=== PATIENT | female | born 1935 | race Caucasian/White ===

== ENCOUNTER 2023-07-05 15:16 | Inpatient (IN) | payer OTHER ==
[2023-07-05 17:54] LABS: POTASSIUM 3.7 mmol/L (3.5-5.1)
[2023-07-05 17:56] LABS: ALBUMIN 3.4 g/dl (3.4-5.0); BLOOD UREA NITROGEN 13.5 mg/dL (7-18); CALCIUM 9.1 mg/dL (8.5-10.1); MAGNESIUM 1.8 mg/dL (1.8-2.4)
[2023-07-05 18:01] LABS: BILIRUBIN,TOTAL 0.9 mg/dL (0.2-1); TOT PROT 7.1 g/dl (6.4-8.2)
[2023-07-05 20:09] LABS: BASO % 0.7 % (0-2.0); EOS % 0.8 % (0-4.5); HEMATOCRIT 38.8 % (32.4-45.2); HEMOGLOBIN 13.1 GM/dL (10.7-15.3); LYMPH % 38.4 % (8-40); MCH 29.5 pg (25.7-33.7); MCHC 33.6 g/dl (32.0-36.0); MEAN CELL VOLUME 87.8 fl (80-96); MEAN PLT VOLUME 7.7 fl (7.5-11.1); MONO % 9.7 % (3.8-10.2); NEUT % 50.4 % (42.8-82.8); PLATELET COUNT 205 10^3/uL (134-434); RBC 4.42 M/mm3 (3.60-5.2); RDW 15.5 % (11.6-15.6); WHITE BLOOD COUNT 7.8 K/mm3 (4.0-10.0)
[2023-07-05 20:22] LABS: PH,URINE 6.5 (5.0-8.0); URINE APPEARANCE Clear; URINE BILIRUBIN Negative (NEGATIVE); URINE COLOR Yellow; URINE GLUCOSE (UA) Negative (NEGATIVE); URINE KETONE 1+ (NEGATIVE); URINE LEUK ESTERASE Negative (NEGATIVE); URINE NITRITE Negative (NEGATIVE); URINE PROTEIN 1+ (NEGATIVE); URINE UROBILINOGEN 0.2 mg/dL (0.2-1.0)
[2023-07-05 22:29] LABS: EPI CELLS 11.3 /uL (0-25.1); HYALINE CASTS 1.03 /uL (0-3.1); URINE BACTERIA 11.6 /uL (0-1359); URINE RBC 19.6 /uL (0-23.9); URINE WBC 17.4 /uL (0-25.8)
[2023-07-05 22:30] LABS: URINE CRYSTALS FEW /hpf
[2023-07-06] MEDS ORDERED: hydrALAZINE HCL 20 MG/ML VIAL IVPUSH PRN (00:19)
[2023-07-06] MEDS ORDERED: LOSARTAN POTASSIUM 50 MG TABLET PO ONE (00:40)
[2023-07-06] MEDS ORDERED: LABETALOL HCL 100 MG TABLET (FP) PO ONE (00:40)
[2023-07-06] MEDS ORDERED: LOSARTAN POTASSIUM 50 MG TABLET ONE ×2 (01:09→10:52)
[2023-07-06] MEDS ORDERED: LABETALOL HCL 100 MG TABLET (FP) ONE ×2 (01:09→10:51)
[2023-07-06] MEDS: hydrALAZINE HCL 20 MG/ML VIAL IVPUSH PRN ×3 (04:15→18:56)
[2023-07-06] MEDS ORDERED: hydrALAZINE HCL 20 MG/ML VIAL ONE ×3 (06:08→18:56)
[2023-07-06 06:24] LABS: HEMATOCRIT 35.8 % (32.4-45.2); HEMOGLOBIN 12.2 GM/dL (10.7-15.3); MCH 30.1 pg (25.7-33.7); MCHC 33.9 g/dl (32.0-36.0); MEAN CELL VOLUME 88.8 fl (80-96); MEAN PLT VOLUME 8.2 fl (7.5-11.1); PLATELET COUNT 197 10^3/uL (134-434); RBC 4.03 M/mm3 (3.60-5.2); RDW 15.2 % (11.6-15.6); WHITE BLOOD COUNT 7.1 K/mm3 (4.0-10.0)
[2023-07-06 06:39] LABS: POTASSIUM 3.4 mmol/L (3.5-5.1)
[2023-07-06 06:41] LABS: CALCIUM 9.2 mg/dL (8.5-10.1)
[2023-07-06 06:42] LABS: ALBUMIN 3.3 g/dl (3.4-5.0); BLOOD UREA NITROGEN 14.1 mg/dL (7-18); MAGNESIUM 1.8 mg/dL (1.8-2.4)
[2023-07-06 06:45] LABS: CREATININE 1.1 mg/dL (0.55-1.3); PHOSPHOROUS 4.8 mg/dL (2.5-4.9)
[2023-07-06 06:46] LABS: TOT PROT 6.8 g/dl (6.4-8.2)
[2023-07-06] MEDS ORDERED: CARBIDOPA/LEVODOPA 25/100 TABLET (FP) PO SCH (10:00)
[2023-07-06] MEDS ORDERED: FAMOTIDINE 20 MG TABLET ONE (10:51)
[2023-07-06] MEDS ORDERED: ASPIRIN 81 MG CHEWABLE TABLETS ONE (10:52)
[2023-07-06] MEDS ORDERED: ENOXAPARIN NA (PORCINE) 40 MG/0.4 ML DISP.SYRIN SQ ONE (10:52)
[2023-07-06] MEDS: ENOXAPARIN NA (PORCINE) 40 MG/0.4 ML DISP.SYRIN SQ SCH (10:55)
[2023-07-06] MEDS: FAMOTIDINE 20 MG TABLET PO SCH ×2 (10:55→11:13)
[2023-07-06] MEDS: LABETALOL HCL 100 MG TABLET (FP) PO SCH ×2 (10:55→11:12)
[2023-07-06] MEDS: LOSARTAN POTASSIUM 50 MG TABLET PO SCH ×2 (10:55→11:13)
[2023-07-06] MEDS: ASPIRIN COATED 81 MG TABLET.EC PO SCH (11:13)
[2023-07-06] MEDS ORDERED: LACTATED RINGERS SOLUTION 1,000 ML with POTASSIUM CHLORIDE 20 MEQ IV ONE (11:15)
[2023-07-06] MEDS ORDERED: LABETALOL HCL 20 MG/4 ML VIAL IVPUSH ONE (12:11)
[2023-07-06] MEDS ORDERED: KCL 10 MEQ IVPB 10 MEQ/100 ML INFUS.BAG IVPB SCH (12:15)
[2023-07-06] MEDS: CARBIDOPA/LEVODOPA 25/100 TABLET (FP) PO SCH ×2 (15:19→22:27)
[2023-07-06] MEDS ORDERED: KCL 10 MEQ IVPB 10 MEQ/100 ML INFUS.BAG IVPB ONE (16:11)
[2023-07-06] MEDS ORDERED: ATORVASTATIN CA 80 MG TABLET (FP) PO SCH (22:00)
[2023-07-07] MEDS: CARBIDOPA/LEVODOPA 25/100 TABLET (FP) PO SCH ×3 (06:29→21:38)
[2023-07-07] MEDS: ENOXAPARIN NA (PORCINE) 40 MG/0.4 ML DISP.SYRIN SQ SCH (09:08)
[2023-07-07] MEDS: FAMOTIDINE 20 MG TABLET PO SCH (09:09)
[2023-07-07] MEDS: ASPIRIN COATED 81 MG TABLET.EC PO SCH (09:09)
[2023-07-07 10:26] LABS: BASO % 0.2 % (0-2.0); EOS % 0.5 % (0-4.5); HEMOGLOBIN 13.1 GM/dL (10.7-15.3); LYMPH % 34.5 % (8-40); MCH 29.9 pg (25.7-33.7); MCHC 33.4 g/dl (32.0-36.0); MEAN CELL VOLUME 89.4 fl (80-96); MEAN PLT VOLUME 8.6 fl (7.5-11.1); MONO % 10.2 % (3.8-10.2); NEUT % 54.6 % (42.8-82.8); PLATELET COUNT 195 10^3/uL (134-434); RBC 4.36 M/mm3 (3.60-5.2); RDW 15.5 % (11.6-15.6)
[2023-07-07 10:47] LABS: ALBUMIN 3.5 g/dl (3.4-5.0); CALCIUM 9.7 mg/dL (8.5-10.1)
[2023-07-07 10:48] LABS: BLOOD UREA NITROGEN 18.2 mg/dL (7-18); MAGNESIUM 1.9 mg/dL (1.8-2.4)
[2023-07-07 10:50] LABS: PHOSPHOROUS 4.3 mg/dL (2.5-4.9)
[2023-07-07 10:51] LABS: TOT PROT 7.3 g/dl (6.4-8.2)
[2023-07-07] MEDS ORDERED: SODIUM CHLORIDE 1,000 ML IV SCH (18:15)
[2023-07-08] MEDS: CARBIDOPA/LEVODOPA 25/100 TABLET (FP) PO SCH ×3 (06:08→21:43)
[2023-07-08 08:34] LABS: BASO % 0.5 % (0-2.0); EOS % 0.8 % (0-4.5); HEMATOCRIT 34.5 % (32.4-45.2); HEMOGLOBIN 11.8 GM/dL (10.7-15.3); LYMPH % 25.6 % (8-40); MCH 30.5 pg (25.7-33.7); MCHC 34.1 g/dl (32.0-36.0); MEAN CELL VOLUME 89.5 fl (80-96); MONO % 8.1 % (3.8-10.2); PLATELET COUNT 176 10^3/uL (134-434); RBC 3.86 M/mm3 (3.60-5.2); RDW 15.1 % (11.6-15.6); WHITE BLOOD COUNT 8.5 K/mm3 (4.0-10.0)
[2023-07-08 08:53] LABS: CHLORIDE 109 mmol/L (98-107); POTASSIUM 3.7 mmol/L (3.5-5.1); SODIUM 143 mmol/L (136-145)
[2023-07-08 09:04] LABS: ALBUMIN 3.1 g/dl (3.4-5.0); ANION GAP 10 mmol/L (4-13); CO2 24 mmol/L (21-32); GLUCOSE,RANDOM 93 mg/dL (74-106); MAGNESIUM 1.8 mg/dL (1.8-2.4)
[2023-07-08 09:06] LABS: CREATININE 0.9 mg/dL (0.55-1.3); PHOSPHOROUS 3.8 mg/dL (2.5-4.9); SGOT/AST 17 U/L (15-37)
[2023-07-08 09:07] LABS: SGPT/ALT < 6 U/L (13-61)
[2023-07-08 09:08] LABS: BILIRUBIN,TOTAL 1.6 mg/dL (0.2-1); TOT PROT 6.6 g/dl (6.4-8.2)
[2023-07-08 09:09] LABS: ALK PHOS 48 U/L (45-117)
[2023-07-08] MEDS: FAMOTIDINE 20 MG TABLET PO SCH (10:07)
[2023-07-08] MEDS: ENOXAPARIN NA (PORCINE) 40 MG/0.4 ML DISP.SYRIN SQ SCH (10:07)
[2023-07-08] MEDS: ASPIRIN COATED 81 MG TABLET.EC PO SCH (10:07)
[2023-07-09] MEDS: LABETALOL HCL 100 MG TABLET (FP) PO SCH ×4 (01:29→22:30)
[2023-07-09] MEDS: LOSARTAN POTASSIUM 50 MG TABLET PO SCH ×2 (01:29→10:03)
[2023-07-09 05:28] VITALS: RESP 18
[2023-07-09] MEDS: CARBIDOPA/LEVODOPA 25/100 TABLET (FP) PO SCH ×4 (06:57→22:30)
[2023-07-09 09:30] LABS: HEMOGLOBIN 12.3 GM/dL (10.7-15.3); MCH 30.3 pg (25.7-33.7); MEAN CELL VOLUME 88.9 fl (80-96); MEAN PLT VOLUME 8.4 fl (7.5-11.1); PLATELET COUNT 175 10^3/uL (134-434); RBC 4.05 M/mm3 (3.60-5.2); RDW 15.4 % (11.6-15.6); WHITE BLOOD COUNT 7.3 K/mm3 (4.0-10.0)
[2023-07-09 09:48] LABS: CHLORIDE 108 mmol/L (98-107); POTASSIUM 3.7 mmol/L (3.5-5.1); SODIUM 143 mmol/L (136-145)
[2023-07-09] MEDS: FAMOTIDINE 20 MG TABLET PO SCH (09:59)
[2023-07-09] MEDS: ASPIRIN COATED 81 MG TABLET.EC PO SCH (09:59)
[2023-07-09 10:00] LABS: ALBUMIN 3.3 g/dl (3.4-5.0); ANION GAP 9 mmol/L (4-13); BLOOD UREA NITROGEN 15.5 mg/dL (7-18); CALCIUM 9.1 mg/dL (8.5-10.1); CO2 26 mmol/L (21-32); GLUCOSE,RANDOM 92 mg/dL (74-106)
[2023-07-09 10:03] LABS: CREATININE 0.8 mg/dL (0.55-1.3); SGOT/AST 19 U/L (15-37); SGPT/ALT < 6 U/L (13-61)
[2023-07-09] MEDS: ENOXAPARIN NA (PORCINE) 40 MG/0.4 ML DISP.SYRIN SQ SCH (10:03)
[2023-07-09 10:04] LABS: BILIRUBIN,TOTAL 1.8 mg/dL (0.2-1); TOT PROT 6.9 g/dl (6.4-8.2)
[2023-07-09 10:05] LABS: ALK PHOS 50 U/L (45-117)
[2023-07-09 19:42] VITALS: BMI 18.8
[2023-07-09] MEDS: ATORVASTATIN CA 80 MG TABLET (FP) PO SCH ×3 (22:00→22:32)
[2023-07-10] MEDS: CARBIDOPA/LEVODOPA 25/100 TABLET (FP) PO SCH ×3 (05:49→22:51)
[2023-07-10] MEDS: hydrALAZINE HCL 20 MG/ML VIAL IVPUSH PRN (10:56)
[2023-07-10] MEDS: ENOXAPARIN NA (PORCINE) 40 MG/0.4 ML DISP.SYRIN SQ SCH (11:09)
[2023-07-10] MEDS: LOSARTAN POTASSIUM 50 MG TABLET PO SCH (11:25)
[2023-07-10] MEDS: ASPIRIN COATED 81 MG TABLET.EC PO SCH (11:26)
[2023-07-10] MEDS: LABETALOL HCL 100 MG TABLET (FP) PO SCH ×2 (11:26→22:51)
[2023-07-10] MEDS: FAMOTIDINE 20 MG TABLET PO SCH (11:26)
[2023-07-10] MEDS ORDERED: DEXTROSE 5%-0.45% SALINE 1,000 ML IV SCH (14:15)
[2023-07-10] MEDS: ATORVASTATIN CA 80 MG TABLET (FP) PO SCH (22:50)
[2023-07-11] MEDS: CARBIDOPA/LEVODOPA 25/100 TABLET (FP) PO SCH ×3 (07:04→21:54)
[2023-07-11 08:30] LABS: HEMATOCRIT 35.4 % (32.4-45.2); HEMOGLOBIN 11.9 GM/dL (10.7-15.3); MCH 30.5 pg (25.7-33.7); MCHC 33.7 g/dl (32.0-36.0); MEAN CELL VOLUME 90.3 fl (80-96); PLATELET COUNT 159 10^3/uL (134-434); RBC 3.92 M/mm3 (3.60-5.2); RDW 15.3 % (11.6-15.6); WHITE BLOOD COUNT 6.7 K/mm3 (4.0-10.0)
[2023-07-11 08:48] LABS: POTASSIUM 3.3 mmol/L (3.5-5.1)
[2023-07-11 08:51] LABS: ALBUMIN 3.2 g/dl (3.4-5.0); BLOOD UREA NITROGEN 20.5 mg/dL (7-18)
[2023-07-11 08:54] LABS: CREATININE 1.1 mg/dL (0.55-1.3)
[2023-07-11 08:55] LABS: BILIRUBIN,TOTAL 0.8 mg/dL (0.2-1); TOT PROT 6.9 g/dl (6.4-8.2)
[2023-07-11] MEDS: hydrALAZINE HCL 20 MG/ML VIAL IVPUSH PRN ×2 (09:36→15:45)
[2023-07-11] MEDS: ENOXAPARIN NA (PORCINE) 40 MG/0.4 ML DISP.SYRIN SQ SCH (09:36)
[2023-07-11] MEDS: LOSARTAN POTASSIUM 50 MG TABLET PO SCH (11:24)
[2023-07-11] MEDS: ASPIRIN COATED 81 MG TABLET.EC PO SCH (13:11)
[2023-07-11] MEDS: LABETALOL HCL 100 MG TABLET (FP) PO SCH ×2 (15:45→21:54)
[2023-07-11] MEDS: FAMOTIDINE 20 MG TABLET PO SCH (20:05)
[2023-07-11] MEDS: ATORVASTATIN CA 80 MG TABLET (FP) PO SCH (21:53)
[2023-07-12] MEDS: CARBIDOPA/LEVODOPA 25/100 TABLET (FP) PO SCH ×3 (07:04→22:22)
[2023-07-12 09:26] LABS: HEMATOCRIT 35.9 % (32.4-45.2); HEMOGLOBIN 12.1 GM/dL (10.7-15.3); MCH 30.2 pg (25.7-33.7); MCHC 33.7 g/dl (32.0-36.0); MEAN CELL VOLUME 89.5 fl (80-96); PLATELET COUNT 169 10^3/uL (134-434); RBC 4.01 M/mm3 (3.60-5.2); RDW 15.3 % (11.6-15.6); WHITE BLOOD COUNT 6.2 K/mm3 (4.0-10.0)
[2023-07-12 09:40] LABS: POTASSIUM 3.4 mmol/L (3.5-5.1)
[2023-07-12 09:48] LABS: CALCIUM 8.9 mg/dL (8.5-10.1)
[2023-07-12 09:49] LABS: ALBUMIN 3.3 g/dl (3.4-5.0); BLOOD UREA NITROGEN 24.4 mg/dL (7-18); MAGNESIUM 1.9 mg/dL (1.8-2.4)
[2023-07-12 09:52] LABS: CREATININE 1.1 mg/dL (0.55-1.3); PHOSPHOROUS 3.7 mg/dL (2.5-4.9)
[2023-07-12 09:54] LABS: BILIRUBIN,TOTAL 1.2 mg/dL (0.2-1)
[2023-07-12] MEDS: ENOXAPARIN NA (PORCINE) 40 MG/0.4 ML DISP.SYRIN SQ SCH (10:36)
[2023-07-12] MEDS: hydrALAZINE HCL 20 MG/ML VIAL IVPUSH PRN (10:53)
[2023-07-12] MEDS: LOSARTAN POTASSIUM 50 MG TABLET PO SCH (11:15)
[2023-07-12] MEDS: LABETALOL HCL 100 MG TABLET (FP) PO SCH ×2 (11:15→22:22)
[2023-07-12] MEDS: FAMOTIDINE 20 MG TABLET PO SCH (11:15)
[2023-07-12] MEDS: ASPIRIN COATED 81 MG TABLET.EC PO SCH (11:15)
[2023-07-12] MEDS ORDERED: POTASSIUM CHLORIDE ORAL LIQUID 20 MEQ/15 ML PO ONE (14:23)
[2023-07-12] MEDS: KCL 10 MEQ IVPB 10 MEQ/100 ML INFUS.BAG IVPB SCH ×2 (15:47→17:01)
[2023-07-12] MEDS: ATORVASTATIN CA 80 MG TABLET (FP) PO SCH (22:22)
[2023-07-13] MEDS: CARBIDOPA/LEVODOPA 25/100 TABLET (FP) PO SCH ×4 (06:40→22:59)
[2023-07-13 09:25] LABS: ALBUMIN 3.4 g/dl (3.4-5.0); CALCIUM 9.2 mg/dL (8.5-10.1)
[2023-07-13 09:26] LABS: BLOOD UREA NITROGEN 34.4 mg/dL (7-18)
[2023-07-13 09:30] LABS: BILIRUBIN,TOTAL 0.8 mg/dL (0.2-1)
[2023-07-13 09:31] LABS: CREATININE 1.2 mg/dL (0.55-1.3)
[2023-07-13 09:33] LABS: TOT PROT 7.1 g/dl (6.4-8.2)
[2023-07-13] MEDS: LOSARTAN POTASSIUM 50 MG TABLET PO SCH (10:09)
[2023-07-13] MEDS: ASPIRIN COATED 81 MG TABLET.EC PO SCH (10:09)
[2023-07-13] MEDS: ENOXAPARIN NA (PORCINE) 40 MG/0.4 ML DISP.SYRIN SQ SCH (10:09)
[2023-07-13] MEDS: LABETALOL HCL 100 MG TABLET (FP) PO SCH ×3 (10:09→23:00)
[2023-07-13] MEDS: FAMOTIDINE 20 MG TABLET PO SCH (10:09)
[2023-07-13] MEDS: ATORVASTATIN CA 80 MG TABLET (FP) PO SCH ×2 (10:50→22:59)
[2023-07-14] MEDS: CARBIDOPA/LEVODOPA 25/100 TABLET (FP) PO SCH (06:30)
[2023-07-14] MEDS: ENOXAPARIN NA (PORCINE) 40 MG/0.4 ML DISP.SYRIN SQ SCH (10:03)
[2023-07-14] MEDS: LABETALOL HCL 100 MG TABLET (FP) PO SCH (10:03)
[2023-07-14] MEDS: LOSARTAN POTASSIUM 50 MG TABLET PO SCH (10:03)
[2023-07-14] MEDS: ASPIRIN COATED 81 MG TABLET.EC PO SCH (10:03)
[2023-07-14] MEDS: FAMOTIDINE 20 MG TABLET PO SCH (10:03)
[2023-07-14 10:21] VITALS: BP 154/77; PULSE 72; TEMP 98.1
== END 2023-07-14 11:36 | disposition home health service (06) | DRG 56 ==
LOC: JER 15:16 → JERBED 22:13 → J6S 07-06 20:52 → OBSVTOIN 07-12 14:10 → J6S 07-14 00:09
PROVIDERS: ADMIT Internal Medicine; ATTEND Internal Medicine
DX: G20.A1 Parkinson's disease without dyskinesia, without mention of fluctuations (principal); U07.1 COVID-19; F02.80 Dementia in other diseases classified elsewhere, unspecified severity, without behavioral disturbance, psychotic disturbance, mood disturbance, and anxiety; R62.7 Adult failure to thrive; I16.0 Hypertensive urgency; E78.5 Hyperlipidemia, unspecified; K21.9 Gastro-esophageal reflux disease without esophagitis
CPT/HCPCS: 0241U-QW; 36415; 70450-TC; 71045-TC-FY; 80053; 81003; 82728; 82962; 83615; 83735; 84100; 84484; 85025; 85027; 85379; 86850; 86900; 86901; 87086; 93005; 93010; 97162-GP; 99285-25; G0378